=== PATIENT | male | born 1975 | race Caucasian/White ===

== ENCOUNTER 2018-08-20 06:57 | Outpatient (CLI) | payer OTHER, SELFPAY ==
[2018-08-20 08:28] LABS: BUN 16 mg/dL (7-18); CREATININE 1.05 mg/dL (0.70-1.30); Calcium 9.1 mg/dL (8.5-10.1); Chloride 106 mmol/L (98-107); Cholesterol 161 mg/dL (50-200); Glucose 112 mg/dL (70-100); HDL Cholesterol 37 mg/dL (40-60); LDL CHOLESTEROL 98 mg/dL (<100); Potassium 4.2 mmol/L (3.5-5.1); Sodium 142 mmol/L (136-145); Triglyceride 127 mg/dL (30-150)
== END 2018-08-20 07:17 ==
PROVIDERS: PCP Nurse Practitioner Family; Visit Provider Nurse Practitioner Family
DX: Z00.00 Encounter for general adult medical examination without abnormal findings (principal); Z13.220 Encounter for screening for lipoid disorders; Z13.228 Encounter for screening for other metabolic disorders
CPT/HCPCS: 36415; 80048; 80061; 83721

== ENCOUNTER 2020-01-02 11:07 | Outpatient (REF) | payer OTHER, SELFPAY ==
[2020-01-02 17:46] LABS: HCT 42.2 % (40.0-50.0); HGB 14.9 g/dL (13.5-17.5); Mean Corp. HGB Concentration 35.3 g/dL (32.0-36.0); Mean Corpuscular Hemoglobin 30.4 pg (27.0-33.0); Mean Corpuscular Volume 86.1 fL (80-95); Mean Platelet Volume 8.9 fL (8.0-11.0); Platelet Count 234 x1000/uL (130-400); RBC Distribution Width 13.2 % (11.8-14.1); White Blood Cell Count 5.98 k/cumm (4.4-10.8)
[2020-01-02 18:27] LABS: ALT 77 U/L (16-63); AST 34 U/L (15-37); Alkaline Phosphatase 76 U/L (46-116); Anion Gap 10.3 mmol/L (3-11); BUN 19 mg/dL (7-18); Bilirubin, Total 0.5 mg/dL (0.2-1.0); CO2 26.7 mmol/L (21.0-32.0); CREATININE 1.05 mg/dL (0.70-1.30); Chloride 104 mmol/L (98-107); Glucose 110 mg/dL (74-106); Potassium 4.1 mmol/L (3.5-5.1); Sodium 141 mmol/L (136-145); TSH (W/Ref FT4) 1.04 uIU/mL (0.36-3.74)
== END 2020-01-02 11:27 ==
LOC: NCHCN 11:07
PROVIDERS: PCP Nurse Practitioner Family; Visit Provider Nurse Practitioner Family
DX: R53.83 Other fatigue (principal)
CPT/HCPCS: 80053; 85027; 84443

== ENCOUNTER 2022-02-28 18:22 | Outpatient (REF) | payer BC, SELFPAY ==
[2022-02-28 18:59] LABS: HCT 41.4 % (40.0-50.0); HGB 14.3 g/dL (13.5-17.5); MCH 29.2 pg (27.0-33.0); MCHC 34.5 % (32.0-36.0); MCV 85 fL (80-95); Platelet Count 217 10^3/uL (130-400); RDW 12.3 % (11.8-14.1); RDW-SD 37.3 fL; WBC 6.36 10^3/uL (4.4-10.8)
[2022-02-28 19:20] LABS: Iron 77 ug/dL (65-175); Total Iron Binding Capacity 305 ug/dL (250-450); Transferrin Sat 25 % (20-55)
[2022-02-28 19:31] LABS: Anion Gap 12.6 mmol/L (3-11); BUN 15 mg/dL (7-18); CO2 26.4 mmol/L (21.0-32.0); Calcium 9.1 mg/dL (8.5-10.1); Chloride 103 mmol/L (98-107); Ferritin 118 ng/mL (26-388); Glucose 120 mg/dL (74-106); Potassium 3.8 mmol/L (3.5-5.1); Sodium 142 mmol/L (136-145); TSH (W/Ref FT4) 1.16 uIU/mL (0.36-3.74)
[2022-02-28 19:38] LABS: Hemoglobin A1C 5.9 % (<5.7)
== END 2022-02-28 18:23 | disposition home or self-care (01) ==
LOC: NCHCN 18:22
PROVIDERS: PCP Nurse Practitioner Family; Visit Provider Nurse Practitioner Family
DX: R53.83 Other fatigue (principal); R73.09 Other abnormal glucose
CPT/HCPCS: 80048; 85027; 82728; 83036; 83540; 83550; 84443

== ENCOUNTER 2022-06-22 12:42 | Outpatient (REF) | payer BC, SELFPAY ==
[2022-06-28 16:25] LABS: Testosterone, Free 8.34 ng/dL (4.46-17.1); Testosterone, Total 196 ng/dL (240-950)
== END 2022-06-22 12:43 | disposition home or self-care (01) ==
LOC: NCHCN 12:42
PROVIDERS: PCP Nurse Practitioner Family; Visit Provider Nurse Practitioner Family
DX: R53.83 Other fatigue (principal); F39 Unspecified mood [affective] disorder; E29.1 Testicular hypofunction
CPT/HCPCS: 84402; 84403

== ENCOUNTER 2022-07-20 15:43 | Outpatient (REF) | payer BC, SELFPAY ==
[2022-07-25 13:19] LABS: Testosterone, Total 207 ng/dL (240-950)
== END 2022-07-20 15:44 | disposition home or self-care (01) ==
LOC: NCHCN 15:43
PROVIDERS: PCP Nurse Practitioner Family; Visit Provider Nurse Practitioner Family
DX: R68.82 Decreased libido (principal); R53.83 Other fatigue
CPT/HCPCS: 84403

== ENCOUNTER 2023-03-30 11:05 | Outpatient (REF) | payer BC, SELFPAY ==
[2023-03-30 14:48] LABS: Abs Immature Grans 0.01 10^3/uL (0.0-0.06); Absolute Basophil Count 0.05 10^3/uL (0.0-0.2); Absolute Eosinophil Count 0.26 10^3/uL (0.0-0.7); Absolute Lymphocyte Count 1.86 10^3/uL (1.2-3.4); Absolute Monocyte Count 0.48 10^3/uL (0.1-0.8); Absolute Neutrophil Count 3.51 10^3/uL (1.2-6.7); Basophils % 0.8; Eosinophils % 4.2; HCT 45.3 % (40.0-50.0); HGB 15.6 g/dL (13.5-17.5); Immature Grans % 0.2; Lymphocytes % 30.1; MCH 29.3 pg (27.0-33.0); MCHC 34.4 % (32.0-36.0); MCV 85 fL (80-95); Monocytes % 7.8; Neutrophils % 56.9; Platelet Count 285 10^3/uL (130-400); RBC 5.32 10^6/uL (4.36-5.78); RDW 12.4 % (11.8-14.1); RDW-SD 38.2 fL; WBC 6.17 10^3/uL (4.4-10.8)
[2023-03-30 15:22] LABS: ALT 64 U/L (16-63); AST 25 U/L (15-37); Alkaline Phosphatase 81 U/L (46-116); Anion Gap 7.9 mmol/L (3-11); BUN 14 mg/dL (7-18); Bilirubin, Total 0.3 mg/dL (0.2-1.0); CO2 29.1 mmol/L (21.0-32.0); Calcium 9.4 mg/dL (8.5-10.1); Chloride 105 mmol/L (98-107); Estimated GFR 94.59 (mL/min/1.73m2); Glucose 124 mg/dL (74-106); Sodium 142 mmol/L (136-145); TSH (W/Ref FT4) 1.28 uIU/mL (0.36-3.74); Total Protein 6.9 g/dL (6.4-8.2)
[2023-03-30 15:29] LABS: Hemoglobin A1C 5.7 % (<5.7)
[2023-03-30 23:01] LABS: PSA, Screening 0.7 ng/mL (<=2.5)
[2023-04-10 14:03] LABS: Testosterone, Free 5.87 ng/dL (4.26-16.4); Testosterone, Total 169 ng/dL (240-950)
== END 2023-03-30 11:06 | disposition home or self-care (01) ==
LOC: NCHCN 11:05
PROVIDERS: PCP Nurse Practitioner Family; Visit Provider Nurse Practitioner Family
DX: R53.83 Other fatigue (principal); E29.1 Testicular hypofunction; R73.03 Prediabetes; Z12.5 Encounter for screening for malignant neoplasm of prostate
CPT/HCPCS: 80053; 84153; 84402; 84403; 83036; 84443; 85025

== ENCOUNTER 2023-04-13 01:03 | Emergency (ER) | payer BC, SELFPAY ==
[2023-04-13 01:07] VITALS: BP 138/81; PULSE 65; RESP 17; TEMP 37.1; O2SAT 99
--- NOTE | 2023-04-13 01:17 | ED.GENADUL_ITS ---
Discharge Plan Disposition Patient Disposition: Home Discharge Details Clinical Impression: Acute pain of right hip Primary Care Provider: Yuli Jules ED Provider: Shayan Pace Home Meds and New Rx's Prescriptions: New prednisone 50 mg tablet 50 mg PO DAILY Qty: 5 0RF No Action omeprazole 20 mg capsule,delayed release(DR/EC) 20 mg PO DAILY Patient Comments: Take 1 capsule by mouth once a day testosterone 1 % (50 mg/5 gram) gel in packet 1 packet transdermal DAILY Patient Comments: APPLY 1 PACKET TO SKIN ONCE DAILY escitalopram oxalate [Lexapro] 10 MG tablet 10 mg PO DAILY Discharge Instructions Instructions: Leg Pain (ED) Additional Instructions: At this time your x-ray shows no evidence of fracture, tumor, or other significant abnormality. There is no clinical evidence of infection on your exam. I suspect there could be a ligamentous injury. Joint injury to the hip causing inflammation in your bursa and around the joint. Please continue to take Tylenol and Motrin for pain. Please continue to take your omeprazole while you take these. If your symptoms do not begin to improve over the next 24 to 48 hours with Tylenol Motrin and crutches, please take the steroid as directed. It has been sent to your pharmacy on file. Stand Alone Forms: Work Release Referrals: Yuli Jules [Primary Care Provider] - Oc Melo MD [ [facility] STAFF PHYSICIAN] - John Vincent MD [ [facility] STAFF PHYSICIAN] - Medical Decision Making 47-year-old male with no significant past medical history except for depression, presents today for right hip pain. Patient states that for the last few years he has had on and off pain in the right hip, usually goes away on its own with time. However last night he woke up and noticed it was particularly worse. He describes it as a throbbing-like sensation in the right hip. Worse with movement of the hip. He did take Tylenol Motrin prior to arrival. He denies any numbness or tingling. No trauma. No excessive exercise. He denies any recent heavy weight lifting or lifting. 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 No history of poor dentition or dental caries. No history of IV drug use per patient. No history of HIV. No fever or chills. No other complaints at this time. Exam demonstrates well-appearing male, tenderness present over the greater trochanter. Pain is relieved with flexion of the hip, worsened with extension, and internal and external rotation. No vascular abnormality. No redness or warmth to suggest cellulitis or septic joint. No fever. Differential is highest for labral or ligamentous injury. Potentially from previous use in the past, manifesting with age now. Fracture less likely. Tumor on the differential but less likely. We will get an x-ray for further evaluation, monitor closely and reassess. Results negative for acute process. Suspect potential labral etiology versus bursal inflammation. Additionally there are some tendon calcifications noted, this may certainly be adding to the pain. Will recommend NSAIDs, weightbearing as tolerated with crutches, and prednisone if the symptoms show no improvement over the next 48 hours. Discussed red flags which to return. I have extensively reviewed the treatment plan and discharge instructions with the patient. I have addressed all patient concerns at this time. The patient was made aware of what symptoms to monitor for that would warrant a return to the emergency department. Discussed the plan with the patient, they demonstrate verbal understanding and agreement with our assessment and plan at this time. The documentation in this chart was dictated using [employer] dictation software. Please excuse any dictation errors. . FINDINGS: Bones/joints: Normal. Soft tissues: Unremarkable. IMPRESSION: No acute findings. Thank you for allowing us to participate in the care of your patient. Dictated and Authenticated by: Shaun Cox MD 04/13/2023 3:17 AM Eastern Time ([place] & [place]) HPI General Date/Time Provider Initiated Documentation: 04/13/23 01:13 . HPI Narrative: 47-year-old male with no significant past medical history except for depression, presents today for right hip pain. Patient states that for the last few years he has had on and off pain in the right hip, usually goes away on its own with time. However last night he woke up and noticed it was particularly worse. He describes it as a throbbing-like sensation in the right hip. Worse with movement of the hip. He did take Tylenol Motrin prior to arrival. He denies any numbness or tingling. No trauma. No excessive exercise. He denies any recent heavy weight lifting or lifting. 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 No history of poor dentition or dental caries. No history of IV drug use per patient. No history of HIV. No fever or chills. No other complaints at this time. Related Data Home Medications Medication Instructions Recorded Confirmed escitalopram oxalate 10 mg tablet 10 mg PO DAILY 01/22/18 04/13/23 (Lexapro) omeprazole 20 mg capsule,delayed 20 mg PO DAILY 04/13/23 04/13/23 release prednisone 50 mg tablet 50 mg PO DAILY #5 tabs 04/13/23 testosterone 1 % (50 mg/5 gram) 1 packet transdermal DAILY 04/13/23 04/13/23 transdermal gel packet Previous Rx's Medication Instructions Recorded prednisone 50 mg tablet 50 mg PO DAILY #5 tabs 04/13/23 Allergies Allergy/AdvReac Type Severity Reaction Status Date / Time shellfish derived Allergy Intermediate Swelling/Ed Unverified 04/13/23 01:21 laya penicillin V Allergy Unknown Unverified 08/25/20 15:41 General Stated Complaint: Orthopedic MATIAS: 3 Review of Systems All systems reviewed & are unremarkable except as noted in HPI and below PFSH All Active Problems (Updated 04/13/23 @ 01:24 by Shayan Pace DO) Acute pain of right hip (Acute) Chronic GERD (Acute) Dysphagia (Acute) Social History Smoking/Tobacco Use Status: Never Smoking risk assessment performed?: Yes Alcohol Intake: current Alcohol Intake frequency: a few times a month Alcohol type: beer and hard liquor Drug use: Daily Substance use type: marijuana Details: gummies for sleep Housing: house Do you feel safe at home: Yes Do you feel safe in your relationship?: Yes Exam Narrative Exam Narrative: 1.Const: Well-nourished, Well-developed, appearing stated age 2.Eyes: PERRL, no conjunctival injection, and symmetrical lids. 3.ENT: Atraumatic external nose and ears. Moist MM. Neck: Symmetric, trachea midline, No thyromegaly. 4.CVS: +S1/S2, No murmurs or gallops. Peripheral pulses 2+ and equal in all extremities. Brisk capillary refill in all extremities. 5.RESP: Unlabored respiratory effort. Clear to auscultation bilaterally. No wheezes rales or rhonchi 6.GI: Soft, Nontender/Nondistended, No hepatosplenomegaly. No guarding or rebound. 7.MSK: Normocephalic/Atraumatic, Extremities w/o deformity. No cyanosis or clubbing. Tenderness over the greater trochanter on the right hip. Pain is relieved with flexion of the hip. It is worsened with extension of the hip. It is also worsened with internal and external rotation. Exam demonstrates no redness or warmth to suggest cellulitis or septic joint. Distal exam of the thigh knee and foot are unremarkable. 8.Skin: Warm, Dry. No rashes or lesions. 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 Sensation grossly intact, no focal neurologic deficits. 10.Psych: (AAO) x3. Appropriate mood and affect Course Vital Signs Vital signs: Vital Signs Temperature 37.1 C 04/13/23 01:07 Pulse 65 04/13/23 01:07 Respiratory Rate 17 04/13/23 01:07 Blood Pressure 138/81 04/13/23 01:07 Pulse Oximetry 99 04/13/23 01:07 Temperature 37.1 C 04/13/23 01:07 Temperature Source Temporal Artery Scan 04/13/23 01:07 Pulse 65 04/13/23 01:07 Respiratory Rate 17 04/13/23 01:07 Blood Pressure 138/81 04/13/23 01:07 Blood Pressure Position Sitting 04/13/23 01:07 Pulse Oximetry 99 04/13/23 01:07 Oxygen Delivery Method Room Air 04/13/23 01:07 Oxygen Flow Rate 0 04/13/23 01:07 Pain Level 4 04/13/23 01:07
--- NOTE | 2023-04-13 01:30 | DI.RAD_ITS ---
Exam(s) XR HIP RT COMPLETE AP PELVIS EXAM: XR HIP RT COMPLETE AP PELVIS CLINICAL HISTORY: right hip pain, hx of deadlifting. TECHNIQUE: 2D digital imaging was performed of the right hip. Four images were obtained. AP pelvis and lateral right hip views were obtained. COMPARISON: No exams were available for comparison FINDINGS: BONES: No acute fracture is present. No bony destructive lesion is seen. JOINTS: No dislocation present. There are degenerative changes seen in the right hip with joint space narrowing and osteophytes. SOFT TISSUE: Normal. IMPRESSION: No acute fracture or dislocation. DATA REPOSITORY: RADIATION DOSE DELIVERED:
--- NOTE | 2023-04-13 03:18 | DI.VRAD_ITS ---
PROCEDURE INFORMATION: Exam: XR Right Hip Exam date and time: 04/13/2023 1:25 AM Age: 47 years old Clinical indication: Hip pain; Right hip TECHNIQUE: Imaging protocol: Radiologic exam of the right hip. Views: 2 or 3 views hip with pelvis when performed. COMPARISON: No relevant prior studies available. FINDINGS: Bones/joints: Normal. Soft tissues: Unremarkable. IMPRESSION: No acute findings. Dictated and Authenticated by: Shaun Cox MD. Ordering:KEITH Downey MD
== END 2023-04-13 01:51 | disposition home or self-care (01) ==
PROVIDERS: Emergency Provider Student in an Organized Health Care Education/Training Program; PCP Nurse Practitioner Family
DX: M25.551 Pain in right hip (principal)
CPT/HCPCS: 99283; 73502; 99284

== ENCOUNTER 2023-07-03 07:22 | Day surgery (SDC) | payer BC, SELFPAY ==
[2023-07-03 08:05] VITALS: BP 129/94; PULSE 62; RESP 18; TEMP 36.4; O2SAT 96
[2023-07-03] MEDS: Lactated Ringers 1,000 ML 80 ML IV (08:35)
--- NOTE | 2023-07-03 08:42 | W.COLOREPORT ---
Date of service: 07/03/23 Time of Service: 08:42 Colonoscopy Report Procedure Description: PROCEDURES PERFORMED: 1. Colonoscopy PREOPERATIVE DIAGNOSIS: Screening colonoscopy POSTOPERATIVE DIAGNOSIS: Normal terminal ileum, normal colon, normal rectum SURGEON: Preet Marin MD INDICATION for procedure: The patient is a 47-year-old man with no symptoms, no family history of colon cancer and he has never had a colonoscopy before. FINDINGS: Normal terminal ileum. No polyps. No inflammation. No diverticular disease. No hemorrhoidal disease. SURVEILLANCE-INTERVAL/FOLLOW-UP: 10 years. Specimens: None EBL: Minimal COMPLICATIONS: None QUALITY of prep: Excellent Procedure in detail: The patient gave written consent and was in agreement with the indications, the potential risks as well as the benefits of the procedure. They were taken to the endoscopy suite and laid in the left lateral decubitus position. A timeout was performed and anesthesia was administered which was tolerated well. I started the procedure. Digital rectal and visual examination was performed and grossly within normal limits. A well-lubricated flexible colonoscope was then introduced and passed without any notable difficulty all the way to the cecum identified by the ileocecal valve and the appendiceal orifice. The terminal ileum was briefly intubated and looked normal visually. The scope was then slowly withdrawn with the above-noted findings. The patient tolerated the procedure well and was taken to the PACU in hemodynamically stable condition.
--- NOTE | 2023-07-03 08:43 | W.PM.DSUDISC ---
Date of service: 07/03/23 Time of Service: 08:43 Discharge Plan Disposition Patient Disposition: Home Condition: Good Discharge Details Attending Provider: Shaun Marin Primary Care Provider: Yuli Jules Home Meds and New Rx's Prescriptions: No Action testosterone enanthate 50 mg/0.5 mL auto-injector 50 mg subcut Q14D Rx Instructions: Every other week. bisacodyl [Dulcolax (bisacodyl)] 5 mg tablet,delayed release (DR/EC) 5 mg PO ONCE Qty: 4 0RF Rx Instructions: Take per colonoscopy instructions provided by ordering providers office polyethylene glycol 3350 17 gram/dose powder 17 g PO ONCE Qty: 238 0RF Rx Instructions: Take per colonoscopy instructions provided by ordering providers office lamotrigine [Lamictal] 25 mg tablet 25 mg PO DAILY escitalopram oxalate [Lexapro] 10 mg tablet 20 mg PO DAILY fluticasone propionate [Flonase Allergy Relief] 50 mcg/actuation spray,suspension 1 spray intranasal DAILY PRN Rx Instructions: administer into each nostril clotrimazole-betamethasone 1-0.05 % cream 1 applic topical BID omeprazole 20 mg capsule,delayed release(DR/EC) 20 mg PO DAILY PRN Patient Comments: Take 1 capsule by mouth once a day multivitamin [Daily Multi-Vitamin] Tablet 1 tab PO DAILY Discharge Instructions Additional Instructions: FINDINGS: Your small intestine, colon and rectum appear completely normal and healthy. No polyps were found. Repeat a colonoscopy in 10 years. Stand Alone Forms: Colonoscopy Post Instructions Activity:: Activity as Tolerated Diet:: As Tolerated
--- NOTE | 2023-07-03 08:43 | W.ANESPRE ---
General Info Date of Service Date Performed: 07/03/23 Height: 5 ft 10 in Weight: 114.2 kg Body Mass Index (BMI): 36.1 Surgical Procedure: Operation Date: 07/03/23 09:05 Proposed Procedure Side Surgeon kiran Marin MD Meds Allergies and Home Medications Allergies Allergy/AdvReac Type Severity Reaction Status Date / Time shellfish derived Allergy Intermediate Swelling/Ed Unverified 07/03/23 08:04 laya penicillin V Allergy Unknown Unverified 07/03/23 08:04 Home Medication Medication Instructions Recorded clotrimazole-betamethasone 1 1 applic topical BID 05/17/23 %-0.05 % topical cream escitalopram oxalate 10 mg tablet 20 mg PO DAILY 05/17/23 (Lexapro) fluticasone propionate 50 1 spray intranasal DAILY PRN 05/17/23 mcg/actuation nasal spray,suspension (Flonase Allergy Relief) bisacodyl 5 mg tablet,delayed 5 mg PO ONCE #4 tabs 06/14/23 release (Dulcolax (bisacodyl)) lamotrigine 25 mg tablet (Lamictal) 25 mg PO DAILY 06/14/23 omeprazole 20 mg capsule,delayed 20 mg PO DAILY PRN 06/14/23 release polyethylene glycol 3350 17 17 g PO ONCE #238 grams 06/14/23 gram/dose oral powder testosterone enanthate 50 mg/0.5 50 mg subcut Q14D 06/14/23 mL subcutaneous auto-injector multivitamin (Daily Multi-Vitamin 1 tab PO DAILY 07/03/23 tablet) Current Visit Medications: Current Medications Generic Name Dose Route Start Last Admin Trade Name Freq PRN Reason Stop Dose Admin Ringer's Solution 1,000 mls @ 80 mls/hr 07/03/23 06:00 07/03/23 08:35 IV 07/03/23 23:59 80 mls/hr INFUSION GARETT Administration IV Miscellaneous Supplies 1 each 07/03/23 06:00 Iv Access IV 07/03/23 23:59 DIRECTED GARETT Sodium Chloride 0 ml 07/03/23 06:00 Normal Saline Flush 10 Ml Syr IV 07/03/23 23:59 PRN PRN Sodium Chloride 0 ml 07/03/23 06:00 Normal Saline 10 Ml Vial IJ 07/03/23 23:59 DIRECTED PRN Sterile Water 0 ml 07/03/23 06:00 Water,Injection,Sterile 10 Ml Vial IJ 07/03/23 23:59 DIRECTED PRN PFSH Active Problems Active Problems: Problem Status Onset Code Prediabetes R73.03 Chronic GERD K21.9 Dysphagia R13.10 Medical History Medical History Depression Restless leg Cyst of lateral meniscus of left knee Headache Back pain Episodic mood disorder Dysphasia GERD (gastroesophageal reflux disease) Fatigue Candidal skin infection Decreased libido Low serum testosterone level Medical History Comments:: Per pt. states he is very sensitive to coming out of anesthesia Tobacco Smoking/Tobacco Use Status: Never Alcohol Alcohol Intake: current Alcohol intake frequency: a few times a month Alcohol type: beer and hard liquor Substance Use Substance use: Daily Substance use type: marijuana Details: gummies for sleep Vital Signs and Lab Results Vital Signs Most Recent Vital Signs in EMR: Most Recent Vital Signs Temp Pulse Resp BP Pulse Ox 36.4 C L 62 18 129/94 H 96 07/03/23 08:05 07/03/23 08:05 07/03/23 08:05 07/03/23 08:05 07/03/23 08:05 Lab Results Blood Type / Crossmatch: No Data to Display Complete Blood Count: No Data to Display Complete Metabolic Panel: No Data to Display Liver Function Panel: No Data to Display Coagulation Panel: No Data to Display Cardiac Panel: No Data to Display Arterial Blood Gas: No Data to Display Venous Blood Gas: No Data to Display Pancreas Panel: No Data to Display Thyroid Panel: No Data to Display Infectious Disease: No Data to Display Blood Cultures: No Data to Display Toxicology Panel: No Data to Display Anesthesia Assessment and Plan Anesthesia History Personal History: Other Family History: No Family History of Anesthesia Complications Exercise Tolerance Exercise Tolerance: Metabolic Equivalents>4 Pertinent Negatives Pertinent Negatives: No Major Cardiovascular Symptoms or Complaints and No Major Pulmonary Symptoms or Complaints Cardiac & Pulmonary Exam Cardiac Exam: Normal S1/S2 Heart Sounds Pulmonary Exam: Clear Bilateral Breath Sounds Implantable Cardiac Device Does patient have a Pacemaker or an ICD?: No Airway Exam Known Difficult Airway: No Mallampati Class: 2 Mouth Opening: Normal (> 3cm) Thyromental Distance: Greater than 3 cm Neck Range of Motion: Full ROM Neck Circumference: Thick Teeth Condition: Normal Dentition Airway Comments: Reports some snoring ASA Classification ASA Score: ASA 2 Emergency Case?: No NPO Status NPO Status: NPO Clears >2 hours, Solids >8 hours Anesthesia Plan Resuscitation Status: Full Code Anesthesia Technique: General Anesthesia Airway Planned: Natural Airway Monitors Used: Standard Monitors Preoperative Comments:: GERD well controlled, medication as needed.
[2023-07-03 08:45] VITALS: BMI 36.1
[2023-07-03 09:14] VITALS: BP 127/73; PULSE 58; RESP 14; TEMP 36.7; O2SAT 97
[2023-07-03 09:42] VITALS: BP 110/67; PULSE 66; RESP 18; TEMP 36.4; O2SAT 97
--- NOTE | 2023-07-03 09:50 | W.ANESPOSTOP ---
Postoperative Evaluation Date, Time and Location Date Performed: 07/03/23 Time Performed: : Patient Location: Day Surgery Unit Vital Signs Most Recent Imported Vital Signs: Most Recent Vital Signs Temp Pulse Resp BP Pulse Ox 36.4 C L 66 18 110/67 97 07/03/23 09:42 07/03/23 09:42 07/03/23 09:42 07/03/23 09:42 07/03/23 09:42 Pain Score Most Recent Pain Score: Most Recent Pain Score Pain Level 0 07/03/23 09:42 Assessment Mental Status: Awake (Alert & Oriented to Patient Baseline) Airway and Respiratory Function: Patent airway with normal (patient baseline) respiratory exam Cardiovascular Function: Hemodynamically Stable Hydration Status: Adequately Hydrated Nausea & Vomiting: No Nausea or Vomiting Pain: Pt. Denies Any Pain Peripheral Nerve Block: Patient did not receive a nerve block
== END 2023-07-03 10:06 | disposition home or self-care (01) ==
PROVIDERS: PCP Nurse Practitioner Family; Visit Provider Student in an Organized Health Care Education/Training Program
PROC: 0DJD8ZZ Inspection of Lower Intestinal Tract, Via Natural or Artificial Opening Endoscopic (ICD-10-PCS; CPT 45378; principal; 2023-07-03 09:00)
DX: Z12.11 Encounter for screening for malignant neoplasm of colon (principal); K21.9 Gastro-esophageal reflux disease without esophagitis
CPT/HCPCS: 45378; 00123; J2001

== ENCOUNTER 2023-07-18 16:10 | Outpatient (REF) | payer BC, SELFPAY ==
[2023-07-18 15:54] LABS: Abs Immature Grans 0.01 10^3/uL (0.0-0.06); Absolute Basophil Count 0.06 10^3/uL (0.0-0.2); Absolute Lymphocyte Count 1.82 10^3/uL (1.2-3.4); Absolute Monocyte Count 0.66 10^3/uL (0.1-0.8); Absolute Neutrophil Count 4.07 10^3/uL (1.2-6.7); Basophils % 0.9; Eosinophils % 4.3; HCT 44.9 % (40.0-50.0); HGB 15.7 g/dL (13.5-17.5); Immature Grans % 0.1; Lymphocytes % 26.3; MCH 29.1 pg (27.0-33.0); MCV 83 fL (80-95); MPV 9.2 fL (8.0-11.0); Monocytes % 9.5; Neutrophils % 58.9; Platelet Count 232 10^3/uL (130-400); RBC 5.39 10^6/uL (4.36-5.78); RDW 12.1 % (11.8-14.1); RDW-SD 36.4 fL; WBC 6.92 10^3/uL (4.4-10.8)
[2023-07-18 16:08] LABS: Calculated LDL 105 mg/dL (<100); Cholesterol 181 mg/dL (<200); HDL Cholesterol 37 mg/dL (40-60); Triglyceride 196 mg/dL (<150)
[2023-07-25 15:19] LABS: Testosterone, Free 5.14 ng/dL (4.26-16.4); Testosterone, Total 146 ng/dL (240-950)
== END 2023-07-18 16:11 | disposition home or self-care (01) ==
LOC: NCHCN 16:10
PROVIDERS: PCP Nurse Practitioner Family; Visit Provider Nurse Practitioner Family
DX: E29.1 Testicular hypofunction (principal); Z13.220 Encounter for screening for lipoid disorders
CPT/HCPCS: 80061; 84402; 84403; 85025

== ENCOUNTER 2023-09-13 10:40 | Emergency (ER) | payer BC, SELFPAY ==
[2023-09-13 10:47] VITALS: BP 186/98; PULSE 72; RESP 16; TEMP 36.6; O2SAT 99
[2023-09-13] MEDS: Ketorolac 10 MG TAB PO (11:06)
[2023-09-13] MEDS: Acetaminophen 500 MG TAB 1000 MG PO (11:07)
--- NOTE | 2023-09-13 11:20 | DI.RAD_ITS ---
Exam(s) XR KNEE RT 3V AP,LAT,BETTE EXAM: XR KNEE RT 3V AP,LAT,BETTE CLINICAL HISTORY: knee pain. TECHNIQUE: 2D digital imaging was performed. Three views. COMPARISON: No exams were available for comparison FINDINGS: BONES: No acute fracture is present. No bony destructive lesion is seen. JOINTS: The knee is normally aligned. No joint effusion is seen. The joint spaces are maintained. Mild chondrocalcinosis is present. Mild periarticular spurring. SOFT TISSUE: Normal. IMPRESSION: Mild degenerative changes and chondrocalcinosis. DATA REPOSITORY: RADIATION DOSE DELIVERED:
--- NOTE | 2023-09-13 11:28 | DI.RAD_ITS ---
Exam(s) XR LUMBAR SPINE AP, LAT EXAM: XR LUMBAR SPINE AP, LAT CLINICAL HISTORY: back pain. TECHNIQUE: 2D digital imaging was performed. Five views. COMPARISON: CR LUMBAR SPINE COMPLETE from 03/27/2014 FINDINGS: BONES: No fracture or destructive lesion. Vertebral body heights are maintained. Small endplate oste ophytes. No facet hypertrophy identified. DISKS: Intervertebral disc spaces are maintained. ALIGNMENT: Lumbar spinal alignment is within normal limits. SOFT TISSUE: Normal. IMPRESSION: Unremarkable radiographs of the lumbar spine. DATA REPOSITORY: RADIATION DOSE DELIVERED:
--- NOTE | 2023-09-13 11:41 | ED.GENADUL_ITS ---
Discharge Plan Disposition Patient Disposition: Home Condition: Stable Discharge Details Clinical Impression: Degenerative arthritis of knee, Chronic back pain, Knee pain, right Primary Care Provider: Yuli Jules ED Provider: Mahsa Mckeon Home Meds and New Rx's Prescriptions: New meloxicam 15 mg tablet 15 mg PO DAILY Qty: 30 0RF Rx Instructions: with food. do not take with other NSAIDS No Action testosterone enanthate 50 mg/0.5 mL auto-injector 50 mg subcut Q14D Rx Instructions: Every other week. lamotrigine [Lamictal] 25 mg tablet 25 mg PO DAILY escitalopram oxalate [Lexapro] 10 mg tablet 20 mg PO DAILY fluticasone propionate [Flonase Allergy Relief] 50 mcg/actuation spray,suspension 1 spray intranasal DAILY PRN Rx Instructions: administer into each nostril clotrimazole-betamethasone 1-0.05 % cream 1 applic topical BID omeprazole 20 mg capsule,delayed release(DR/EC) 20 mg PO DAILY PRN Patient Comments: Take 1 capsule by mouth once a day multivitamin [Daily Multi-Vitamin] Tablet 1 tab PO DAILY Discharge Instructions Instructions: Knee Pain (ED) Additional Instructions: start NSAID medication as prescribed, keep follow up with PCP for further management HPI General Date/Time Provider Initiated Documentation: 09/13/23 10:59 . Limitations to Documentation: no limitations . Information obtained by: patient . HPI Narrative: 48-year-old gentleman without significant past medical history presents for evaluation of chronic low back pain. He reports this is an ongoing issue. Denies any acute trauma or fall. He reports that since yesterday he started having more significant right knee pain. Again no trauma or event that precipitated this. He states that he has not really been taking any pain medication for relief. He says that he has a an appointment scheduled with his PCP but that he wanted to make sure that he got some x-rays first. Related Data Home Medications Medication Instructions Recorded Confirmed clotrimazole-betamethasone 1 1 applic topical BID 05/17/23 09/13/23 %-0.05 % topical cream escitalopram oxalate 10 mg tablet 20 mg PO DAILY 05/17/23 09/13/23 (Lexapro) fluticasone propionate 50 1 spray intranasal DAILY PRN 05/17/23 09/13/23 mcg/actuation nasal spray,suspension (Flonase Allergy Relief) lamotrigine 25 mg tablet (Lamictal) 25 mg PO DAILY 06/14/23 09/13/23 omeprazole 20 mg capsule,delayed 20 mg PO DAILY PRN 06/14/23 09/13/23 release testosterone enanthate 50 mg/0.5 50 mg subcut Q14D 06/14/23 09/13/23 mL subcutaneous auto-injector multivitamin (Daily Multi-Vitamin 1 tab PO DAILY 07/03/23 09/13/23 tablet) meloxicam 15 mg tablet 15 mg PO DAILY #30 tabs 09/13/23 Previous Rx's Medication Instructions Recorded meloxicam 15 mg tablet 15 mg PO DAILY #30 tabs 09/13/23 Allergies Allergy/AdvReac Type Severity Reaction Status Date / Time shellfish derived Allergy Intermediate Swelling/Ed Unverified 09/13/23 10:46 laya penicillin V Allergy Unknown Skin Rash Unverified 09/13/23 10:46 General Stated Complaint: Orthopedic MATIAS: 4 Exam Narrative Exam Narrative: Review of Systems: All systems reviewed & are unremarkable except as noted in HPI and below Well-developed, no acute distress NCAT PERRL, normal conjunctiva RRR Unlabored respiratory effort Nondistended abdomen Extremities w/o deformity, no cyanosis, no edema No midline back tenderness, step-off or deformity, negative straight leg test Right knee without effusion or instability or obvious deformity No rashes or lesions. no focal neurologic deficits Appropriate mood and affect Course Vital Signs Vital signs: Vital Signs Temperature 36.6 C 09/13/23 10:47 Pulse 72 09/13/23 10:47 Respiratory Rate 16 09/13/23 10:47 Blood Pressure 186/98 H 09/13/23 10:47 Pulse Oximetry 99 09/13/23 10:47 Temperature 36.6 C 09/13/23 10:47 Temperature Source Temporal Artery Scan 09/13/23 10:47 Pulse 72 09/13/23 10:47 Respiratory Rate 16 09/13/23 10:47 Blood Pressure 186/98 H 09/13/23 10:47 Blood Pressure Position Sitting 09/13/23 10:47 Pulse Oximetry 99 09/13/23 10:47 Oxygen Delivery Method Room Air 09/13/23 10:47 Oxygen Flow Rate 0 09/13/23 10:47 Pain Level 6 09/13/23 11:07 Comment no meds today 09/13/23 10:47 Medical Decision Making Emergent evaluation of knee pain. No trauma. Examination is benign. Back pain is unremarkable and patient has no risk factors. Imaging obtained and this is unremarkable. Will start on Mobic. Patient has primary care follow-up. Return precautions advised. Medical Records Medical records reviewed: Yes I reviewed the patient's medical records. Quality:SDOH Health Related Social Needs: No Data to Display PFSH All Active Problems Knee pain, right (Acute) Chronic back pain (Acute) Degenerative arthritis of knee (Acute) Prediabetes (Acute) Chronic GERD (Acute) Dysphagia (Acute) Medical History Depression Restless leg Cyst of lateral meniscus of left knee Headache Back pain Episodic mood disorder Dysphasia GERD (gastroesophageal reflux disease) Fatigue Candidal skin infection Decreased libido Low serum testosterone level Surgical History History of colonoscopy (~06/2023) Social History Smoking/Tobacco Use Status: Never Smoking risk assessment performed?: Yes Alcohol Intake: current Alcohol Intake frequency: a few times a month Alcohol type: beer and hard liquor Drug use: Daily Substance use type: marijuana Details: gummies for sleep Housing: house Current gender identity: male Do you feel safe at home: Yes Do you feel safe in your relationship?: Yes
== END 2023-09-13 11:46 | disposition home or self-care (01) ==
PROVIDERS: Emergency Provider Emergency Medicine; PCP Nurse Practitioner Family
DX: M54.50 Low back pain, unspecified (principal); M17.11 Unilateral primary osteoarthritis, right knee; G89.29 Other chronic pain
CPT/HCPCS: 73562; 99283; 72100

== ENCOUNTER 2023-09-24 11:02 | Outpatient (REF) | payer BC, SELFPAY ==
[2023-09-24 17:35] LABS: Abs Immature Grans 0.01 10^3/uL (0.0-0.06); Absolute Basophil Count 0.06 10^3/uL (0.0-0.2); Absolute Eosinophil Count 0.21 10^3/uL (0.0-0.7); Absolute Lymphocyte Count 1.86 10^3/uL (1.2-3.4); Absolute Monocyte Count 0.54 10^3/uL (0.1-0.8); Absolute Neutrophil Count 3.58 10^3/uL (1.2-6.7); Eosinophils % 3.4; HCT 43.7 % (40.0-50.0); HGB 15.4 g/dL (13.5-17.5); Immature Grans % 0.2; Lymphocytes % 29.7; MCH 29.7 pg (27.0-33.0); MCHC 35.2 % (32.0-36.0); MCV 84 fL (80-95); MPV 9.6 fL (8.0-11.0); Monocytes % 8.6; Neutrophils % 57.1; Platelet Count 298 10^3/uL (130-400); RBC 5.19 10^6/uL (4.36-5.78); RDW 12.1 % (11.8-14.1); RDW-SD 36.4 fL; WBC 6.26 10^3/uL (4.4-10.8)
[2023-09-24 18:32] LABS: Iron 72 ug/dL (65-175); Total Iron Binding Capacity 288 ug/dL (250-450); Transferrin Sat 25 % (20-55)
[2023-09-24 18:44] LABS: ALT 55 U/L (16-63); AST 24 U/L (15-37); Albumin 3.9 g/dL (3.4-5.0); Alkaline Phosphatase 67 U/L (46-116); Anion Gap 11.9 mmol/L (3-11); BUN 17 mg/dL (7-18); Bilirubin, Total 0.3 mg/dL (0.2-1.0); CO2 25.1 mmol/L (21.0-32.0); CREATININE 0.9 mg/dL (0.70-1.30); Chloride 106 mmol/L (98-107); Estimated GFR 106.67 (mL/min/1.73m2); Glucose 107 mg/dL (74-106); Magnesium 1.9 mg/dL (1.8-2.4); Potassium 4.4 mmol/L (3.5-5.1); Sodium 143 mmol/L (136-145); Total Protein 6.8 g/dL (6.4-8.2); Uric Acid 6.6 mg/dL (3.5-7.2)
[2023-09-24 18:55] LABS: Vitamin D 25 Total 24.6 ng/mL (30-100)
[2023-09-24 19:15] LABS: Ferritin 134 ng/mL (26-388)
== END 2023-09-24 11:03 | disposition home or self-care (01) ==
LOC: NCHCN 11:02
PROVIDERS: PCP Nurse Practitioner Family; Visit Provider Student in an Organized Health Care Education/Training Program
DX: M11.261 Other chondrocalcinosis, right knee (principal)
CPT/HCPCS: 80053; 82306; 82728; 83540; 83550; 83735; 84550; 85025

== ENCOUNTER 2023-11-28 13:15 | Outpatient (REF) | payer BC, SELFPAY ==
[2023-11-28 21:17] LABS: Vitamin D 25 Total 29.9 ng/mL (30-100)
[2023-12-09 11:08] LABS: Testosterone, Free 6.16 ng/dL (4.26-16.4); Testosterone, Total 153 ng/dL (240-950)
== END 2023-11-28 13:16 | disposition home or self-care (01) ==
LOC: NCHCN 13:15
PROVIDERS: PCP Nurse Practitioner Family; Visit Provider Nurse Practitioner Family
DX: E29.1 Testicular hypofunction (principal)
CPT/HCPCS: 82306; 84402; 84403

== ENCOUNTER → 2024-01-23 00:28 | Outpatient (CLI) | payer BC, SELFPAY ==
--- NOTE | 2024-01-23 08:10 | DI.MRI_ITS ---
Exam(s) MR LOWER JOINT RT WO EXAM: MR LOWER JOINT RT WO CLINICAL HISTORY: PAIN,internal derangement rt knee, m23.91. TECHNIQUE: Multiplanar multisequence MRI was performed. COMPARISON: CR XR KNEE RT 3V AP,LAT,BETTE from 09/13/2023 FINDINGS: BONES: Mild edema in medial femoral condyle and medial tibial plateau could represent mild contusions . JOINTS: No a moderate-sized joint effusion is present. Articular cartilage: Patellofemoral joint: Cartilage shows mild thinning and irregularity. Medial femoral tibial joint: Thinning and irregularity of cartilage over medial femoral condyle. Lateral femoral tibial joint: Articular cartilage is unremarkable. LIGAMENTS: Anterior Cruciate: Unremarkable. Posterior Cruciate: Unremarkable. Medial Collateral:Unremarkable. Lateral Collateral ligament complex: Unremarkable. TENDONS: Extensor mechanism: Unremarkable. Medial retinaculum: Unremarkable. Lateral retinaculum: Unremarkable. Popliteus: Intact. Small amount of surrounding fluid. MENISCI: The medial meniscus shows blunting of the apex in the posterior horn. There is additional radial tea r seen near the meniscal root. The lateral meniscus is unremarkable. MUSCLES: Unremarkable. SOFT TISSUES: Edema in the anterior subcutaneous fat. IMPRESSION: Tears in the posterior horn of the medial meniscus. No ligament tears. DATA REPOSITORY:
== END ==
PROVIDERS: PCP Nurse Practitioner Family; Visit Provider Student in an Organized Health Care Education/Training Program
DX: M23.91 Unspecified internal derangement of right knee (principal); M23.221 Derangement of posterior horn of medial meniscus due to old tear or injury, right knee
CPT/HCPCS: 73721

== ENCOUNTER 2024-03-18 08:12 | Day surgery (SDC) | payer BC, SELFPAY ==
[2024-03-18] VITALS (14 sets, daily range): BP systolic 120–143; BP diastolic 63–98; PULSE 46–61; RESP 10–17; TEMP 36.1–36.5; O2SAT 95–100; BMI 37.2
[2024-03-18] MEDS: Lactated Ringers 1,000 ML 80 ML IV (09:04)
[2024-03-18] MEDS: Celecoxib 200 MG CAP 400 MG PO (09:05)
[2024-03-18] MEDS: Acetaminophen 500 MG TAB 1000 MG PO (09:05)
--- NOTE | 2024-03-18 09:07 | W.ANESPRE ---
General Info Date of Service Date Performed: 03/18/24 Height: 5 ft 10 in Weight: 117.7 kg Body Mass Index (BMI): 37.2 Surgical Procedure: Operation Date: 03/18/24 11:10 Proposed Procedure Side Surgeon p Knee Arthroscopy, Partial Lateral & Medial Menisectomy Right John Vincent MD Meds Allergies and Home Medications Allergies Allergy/AdvReac Type Severity Reaction Status Date / Time shellfish derived Allergy Intermediate Swelling/Ed Verified 03/18/24 08:22 laya penicillin V Allergy Unknown Skin Rash Verified 03/18/24 08:22 Home Medication ?Medication ?Instructions ?Recorded escitalopram oxalate 10 mg tablet 20 mg PO DAILY 05/17/23 (Lexapro) lamotrigine 25 mg tablet (Lamictal) 25 mg PO DAILY 06/14/23 omeprazole 20 mg capsule,delayed 20 mg PO DAILY PRN 06/14/23 release meloxicam 15 mg tablet 15 mg PO DAILY #30 tabs 09/13/23 Current Visit Medications: Current Medications Generic Name Dose Route Start Last Admin Trade Name Freq PRN Reason Stop Dose Admin Acetaminophen 1,000 mg 03/18/24 06:00 03/18/24 09:05 Acetaminophen 500 Mg Tab PO 03/18/24 23:59 1,000 mg PREOP GARETT Administration Celecoxib 400 mg 03/18/24 06:00 03/18/24 09:05 Celecoxib 200 Mg Cap PO 03/18/24 23:59 400 mg PREOP GARETT Administration Ringer's Solution 1,000 mls @ 80 mls/hr 03/18/24 06:00 03/18/24 09:04 IV 03/18/24 23:59 80 mls/hr INFUSION GARETT Administration Cefazolin Sodium 3,000 mg/ 100 mls @ 200 mls/hr 03/18/24 06:00 Sodium Chloride IV 03/18/24 23:59 PREOP GARETT Tranexamic Acid/Sodium Chloride 1,000 mg in 100 mls @ 600 mls/hr 03/18/24 06:00 IVPB 03/18/24 23:59 PREOP GARETT IV Miscellaneous Supplies 1 each 03/18/24 06:00 Iv Access IV 03/18/24 23:59 DIRECTED GARETT Sodium Chloride 0 ml 03/18/24 06:00 Normal Saline Flush 10 Ml Syr IV 03/18/24 23:59 PRN PRN Sodium Chloride 0 ml 03/18/24 06:00 Normal Saline 10 Ml Vial IJ 03/18/24 23:59 DIRECTED PRN Sterile Water 0 ml 03/18/24 06:00 Water,Injection,Sterile 10 Ml Vial IJ 03/18/24 23:59 DIRECTED PRN PFSH Active Problems Active Problems: Problem Status Onset Code Tear of lateral meniscus of right knee Acute S83.281A Complex tear of medial meniscus of right knee Acute S83.231A Chondrocalcinosis Acute M11.20 Internal derangement of right knee Acute M23.91 Degenerative joint disease of right hip Chronic M16.11 Prediabetes Acute R73.03 Chronic GERD Acute K21.9 Dysphagia Acute R13.10 Medical History Medical History Depression Restless leg Cyst of lateral meniscus of left knee Headache Back pain Episodic mood disorder Dysphasia GERD (gastroesophageal reflux disease) Fatigue Candidal skin infection Decreased libido Low serum testosterone level Surgical History Surgical History History of colonoscopy (~06/2023) Tobacco Smoking/Tobacco Use Status: Never Alcohol Alcohol Intake: current Alcohol intake frequency: a few times a month Alcohol type: beer and hard liquor Substance Use Substance use: Daily Substance use type: marijuana Details: gummies for sleep Vital Signs and Lab Results Vital Signs Most Recent Vital Signs in EMR: Most Recent Vital Signs Temp Pulse Resp BP Pulse Ox 36.3 C L 60 16 134/82 97 03/18/24 09:00 03/18/24 09:00 03/18/24 09:00 03/18/24 09:00 03/18/24 09:00 Lab Results Blood Type / Crossmatch: No Data to Display Complete Blood Count: No Data to Display Complete Metabolic Panel: No Data to Display Liver Function Panel: No Data to Display Coagulation Panel: No Data to Display Cardiac Panel: No Data to Display Arterial Blood Gas: No Data to Display Venous Blood Gas: No Data to Display Pancreas Panel: No Data to Display Thyroid Panel: No Data to Display Infectious Disease: No Data to Display Blood Cultures: No Data to Display Toxicology Panel: No Data to Display Anesthesia Assessment and Plan Anesthesia History Personal History: No History of Anesthesia Complications Family History: No Family History of Anesthesia Complications Exercise Tolerance Exercise Tolerance: Metabolic Equivalents>4 Pertinent Negatives Pertinent Negatives: No Symptoms of GERD, No Major Cardiovascular Symptoms or Complaints, No Major Pulmonary Symptoms or Complaints and No History of CVA/TIA Cardiac & Pulmonary Exam Cardiac Exam: Normal S1/S2 Heart Sounds Pulmonary Exam: Clear Bilateral Breath Sounds Implantable Cardiac Device Does patient have a Pacemaker or an ICD?: No Airway Exam Known Difficult Airway: No Mallampati Class: 2 Mouth Opening: Normal (> 3cm) Thyromental Distance: Greater than 3 cm Neck Range of Motion: Full ROM Neck Circumference: Thick Teeth Condition: Normal Dentition Airway Comments: Reports some snoring ASA Classification ASA Score: ASA 2 Emergency Case?: No NPO Status NPO Status: NPO Clears >2 hours, Solids >8 hours Anesthesia Plan Resuscitation Status: Full Code Anesthesia Technique: General Anesthesia Airway Planned: LMA Monitors Used: Standard Monitors
--- NOTE | 2024-03-18 09:11 | W.PREOPHP ---
Assessment and Plan Assessment and plan (1) Complex tear of medial meniscus of right knee: Status: Acute (2) Tear of lateral meniscus of right knee: Status: Acute Assessment and plan: Marin is a 48-year-old male who has persistent right knee pain with MRI confirmed medial and lateral meniscal tears. He has failed other nonoperative options and is here today for arthroscopic intervention. I reviewed the risk of the procedure to include bleeding, infection, pain, stiffness, worsening arthritis, blood clot. Despite these risk, he elects to proceed History of Present Illness History of Present Illness Chief Complaint: Right Knee Pain Narrative: Marin is an active 48 year old male who has had persistent right knee pain. MRI was performed and confirmed medial and lateral meniscus tears. He has failed other onoperative options and is here today for arthroscopic intervention. No acute changes. No chest pain or shortness of breath. Review of Systems All systems reviewed & are unremarkable except as noted in HPI and below PFSH All Active Problems Tear of lateral meniscus of right knee (Acute) Complex tear of medial meniscus of right knee (Acute) Chondrocalcinosis (Acute) Internal derangement of right knee (Acute) Degenerative joint disease of right hip (Chronic) Prediabetes (Acute) Chronic GERD (Acute) Dysphagia (Acute) Medical History Depression Restless leg Cyst of lateral meniscus of left knee Headache Back pain Episodic mood disorder Dysphasia GERD (gastroesophageal reflux disease) Fatigue Candidal skin infection Decreased libido Low serum testosterone level Surgical History History of colonoscopy (~06/2023) Social History Smoking/Tobacco Use Status: Never Smoking risk assessment performed?: Yes Alcohol Intake: current Alcohol Intake frequency: a few times a month Alcohol type: beer and hard liquor Drug use: Daily Substance use type: marijuana Details: gummies for sleep Housing: house Current gender identity: male Do you feel safe at home: Yes Do you feel safe in your relationship?: Yes Meds Allergies and Home Medications Allergies Allergy/AdvReac Type Severity Reaction Status Date / Time shellfish derived Allergy Intermediate Swelling/Ed Verified 03/18/24 08:22 laya penicillin V Allergy Unknown Skin Rash Verified 03/18/24 08:22 Home Medications ?Medication ?Instructions ?Recorded ?Confirmed ?Type escitalopram oxalate 10 mg tablet 20 mg PO DAILY 05/17/23 03/18/24 History (Lexapro) lamotrigine 25 mg tablet (Lamictal) 25 mg PO DAILY 06/14/23 03/18/24 History omeprazole 20 mg capsule,delayed 20 mg PO DAILY PRN 06/14/23 03/18/24 History release meloxicam 15 mg tablet 15 mg PO DAILY #30 tabs 09/13/23 03/18/24 Rx acetaminophen 500 mg tablet 500 mg PO Q6H PRN pain #60 tabs 03/18/24 Rx hydrocodone 5 mg-acetaminophen 325 1 tab PO Q6H PRN severe pain #6 03/18/24 Rx mg tablet tabs Exam Const General: cooperative Nutritional Appearance: average body habitus Orientation: alert, awake and oriented x3 Resp Effort & Inspection: normal respiratory effort Auscultation: clear to auscultation bilaterally Cardio Rate: regular rate Rhythm: regular rhythm Results Last Vital Signs Temp 36.3 C L 03/18/24 09:00 Pulse 60 03/18/24 09:00 Resp 16 03/18/24 09:00 BP 134/82 03/18/24 09:00 Pulse Ox 97 03/18/24 09:00
--- NOTE | 2024-03-18 10:03 | W.PM.DSUDISC ---
Date of service: 03/18/24 Time of Service: 10:06 Discharge Plan Disposition Patient Disposition: Home Condition: Good Discharge Details Reason For Visit: Right knee medial meniscus tear Attending Provider: John Vincent Primary Care Provider: Yuli Jules Home Meds and New Rx's Prescriptions: New hydrocodone-acetaminophen 5-325 mg tablet 1 tab PO Q6H PRN (Reason: severe pain) Qty: 6 0RF Rx Instructions: Take one tablet up to every 6 hours as needed for severe postoperative pain acetaminophen 500 mg tablet 500 mg PO Q6H PRN (Reason: pain) Qty: 60 2RF Continued lamotrigine [Lamictal] 25 mg tablet 25 mg PO DAILY escitalopram oxalate [Lexapro] 10 mg tablet 20 mg PO DAILY omeprazole 20 mg capsule,delayed release(DR/EC) 20 mg PO DAILY PRN Patient Comments: Take 1 capsule by mouth once a day meloxicam 15 mg tablet 15 mg PO DAILY Qty: 30 0RF Rx Instructions: with food. do not take with other NSAIDS Discharge Instructions Stand Alone Forms: [facility] Knee Arthroscopy Equipment/Supplies: Partial Weight Bearing Crutches Activity:: Elevate Remove Dressings/Wound Care:: 48 hours Shower/Bathe:: 48 hours Diet:: As Tolerated Discharge Orders Discharge Orders: Discharge Order (Routine); Ordered 03/18/24 Ordered By: Oneyda Johnson
[2024-03-18] MEDS: ceFAZolin 3,000 MG in Normal Saline 100 ML 200 MG IV (10:11)
[2024-03-18] MEDS: TRANEXAMIC ACID/SOD. CHL. 1,000 MG/100 ML BAG 600 MG IVPB (10:20)
[2024-03-18] MEDS: EPINEPHrine 10 MG/10 ML ML (10:28)
[2024-03-18] MEDS: Bupivacaine 0.5% Pres-Free 30 ML VIAL (10:33)
--- NOTE | 2024-03-18 11:12 | ROE_ITS ---
Date of service: 03/18/24 Time of Service: 10:10 Operative Note Operative Note DATE OF PROCEDURE: 03/18/24 PRE-OP DIAGNOSIS: Right knee medial and lateral meniscal tears POST-OP DIAGNOSIS: same (Medial and lateral chondromalacia) PROCEDURE: Arthroscopic partial medial and lateral meniscectomies?right knee Lateral chondroplasty - right knee SURGEON: John Vincent ANESTHESIA TYPE: General LMA/ETT Refer to Anesthesia Record ESTIMATED BLOOD LOSS: 5 PATHOLOGY: none sent COMPLICATIONS: None Patient was transported to: PACU Patient's condition: stable Indications: I have seen Marin in clinic for symptoms of a meniscus tear. This was confirmed based on MRI and exam findings. Nonoperative measures were exhausted but disability and pain persisted. I discussed knee arthroscopy with meniscal intervention with the patient. I reviewed the risks of the procedure to include, but not limited to, bleeding, infection, pain, stiffness, damage to n erves or vessels, recurrence, blood clot. Despite these risks, the patient elected to proceed. Findings: A diagnostic arthroscopy was performed with the following findings: Suprapatellar Pouch: Mild inflammatory changes, No loose bodies Medial Compartment: Complex medial meniscal tear with a primary radial component as well as horizontal extension, Intact meniscal root, grade III chondromalacia of the femur, almost entire weightbearing portion, and focally within the central portion of the tibia, No loose bodies Notch: ACL and PCL were intact Lateral Compartment: Calcification seen within the meniscus with a complex tear at the posterior horn, Intact meniscal root, grade II/III chondromalacia mostly of the tibia and the posterior lateral corner, No loose bodies Patellofemoral Compartment: Grade II/III chondromalacia, No apparent patellar maltracking Procedure Description: Marin was greeted in the preoperative holding area where the correct side was identified and marked. The consent was reviewed with the patient and signed. The history and physical was updated. All questions were answered. He was taken back to the operating room. The patient was placed into the supine position on the operating room table. All bony prominences were well padded. Prophylactic antibiotics in the form of Cefazolin were administered. The right leg was then prepped with Chloraprep and draped in a standard fashion with stockinette and extremity drape. A timeout to confirm correct identity, side and site, procedure, allergies, anesthesia, and medical concerns was performed. The leg was placed into a pneumatic leg bucio, [id number]. A standard lateral portal was made at the lateral border of the patella tendon in line with the inferior pole of the patella, soft spot. The skin and deep tissue was incised sharply and the blunt trochar was inserted atraumatically. A diagnostic arthroscopy was performed and the findings are listed above. The suprapatellar pouch had mild inflammatory changes. The patellofemoral articulation showed moderate chondral changes both of the patella and the trochlea but with good tracking. The lateral gutter had no loose bodies and the medial gutter had no loose bodies. The knee was brought into some valgus stress in extension to open the medial compartment. A medial portal was made, localized by a spinal needle. The portal was created with an #11 blade through skin and capsule under direct visualization avoiding any meniscal injury. A probe was then inserted into the medial compartment. The medial compartment was fully inspected. The chondral surface of the tibia showed grade III chondromalacia with fissuring and the surface of the femur showed grade III chondromalacia. The medial meniscus had a complex tear at the level of the posterior horn with a primary radial component and horizontal extension medially. There are some fraying of the right meniscus and degenerative appearance. After evaluation, the meniscus was debrided down to a stable base using a series of biters and arthroscopic neil. It was probed afterwards to confirm that the tear had been removed and the meniscus was stable. No chondroplasty was performed given that there is no loose flaps. The notch was then inspected which showed an intact ACL and an intact PCL. The leg was then brought into a figure of 4 position. The lateral compartment was fully inspected with the arthroscope and a probe. The chondral surface of the lateral femur showed grade I chondromalacia. The chondral surface of the lateral tibia showed a focal area of grade III chondromalacia at the posterior lateral aspect of the tibial plateau. The lateral meniscus had crystal de posits. After evaluation, the meniscus was debrided down to a stable base using a series of biters and arthroscopic neil. It was probed afterwards to confirm that the tear had been removed and the meniscus was stable. Cartilage surfaces were debrided of any flaps, leaving any intact fibers. The arthroscope was brought back into the suprapatellar pouch and the leg was in full extension. The knee was thoroughly irrigated with the arthroscopic fluid on high flow and pressure. Inflow was stopped and excess fluid was removed. The wounds were closed with 4-0 Nylon. They were dressed with Xeroform, 4x4 gauze, ABD pad, Kerlix and an CANDY wrap. A cryo-cuff was applied. The patient tolerated the procedure well and was returned to the Same Day Surgery area in a stable condition suffering no known complication.
[2024-03-18] MEDS: HYDROcodone 5/Acetaminophen 325 TAB PO (12:37)
--- NOTE | 2024-03-18 12:40 | W.ANESPOSTOP ---
Postoperative Evaluation Date, Time and Location Date Performed: 03/18/24 Time Performed: 12:41 Patient Location: Day Surgery Unit Vital Signs Most Recent Imported Vital Signs: Most Recent Vital Signs Temp Pulse Resp BP Pulse Ox 36.5 C 50 L 12 140/87 99 03/18/24 12:05 03/18/24 12:11 03/18/24 12:11 03/18/24 12:11 03/18/24 12:11 Pain Score Most Recent Pain Score: Most Recent Pain Score Pain Level 4 03/18/24 12:05 Assessment Mental Status: Awake (Alert & Oriented to Patient Baseline) Airway and Respiratory Function: Patent airway with normal (patient baseline) respiratory exam Cardiovascular Function: Hemodynamically Stable Hydration Status: Adequately Hydrated Nausea & Vomiting: No Nausea or Vomiting Pain: Pain is tolerable per patient Peripheral Nerve Block: Patient did not receive a nerve block Teaching Patient Teaching: Discussed Safe Use of Pain Medication Given Recent Anesthesia
== END 2024-03-18 13:31 | disposition home or self-care (01) ==
PROVIDERS: PCP Nurse Practitioner Family; Visit Provider Student in an Organized Health Care Education/Training Program
PROC: (CPT 29870; principal; 2024-03-18 11:00)
DX: M23.231 Derangement of other medial meniscus due to old tear or injury, right knee (principal); M23.261 Derangement of other lateral meniscus due to old tear or injury, right knee; M11.261 Other chondrocalcinosis, right knee; M94.261 Chondromalacia, right knee
CPT/HCPCS: 29880; J0665; J0690; J1100; J2001; J2250; J2405; J2704

== ENCOUNTER 2025-01-15 09:52 | Outpatient (CLI) | payer BC, SELFPAY ==
[2025-01-15] MEDS: Gadoterate meglumine 20 ML SYRINGE IVP (13:05)
[2025-01-15] MEDS: Normal Saline Flush 10 ML SYR IVP (13:06)
--- NOTE | 2025-01-15 13:30 | DI.MRI_ITS ---
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 Both noninfused and contrast infused sequences were performed. IV Contrast injected was cc Dotarem. COMPARISON: No exams were available for comparison FINDINGS: CEREBRAL PARENCHYMA: No evidence of intracranial hemorrhage, mass effect nor shift of midline structure. No extraaxial fluid collections. Ventricles are not enlarged nor shifted. There is no significant focal signal abnormality in the cerebellar hemispheres nor within the camilo, midbrain, and thalami. There is no abnormal signal abnormality in the periventricular white matter. DWI: No areas of restricted diffusion to suggest acute ischemic event. SWI: No microhemorrhages evident. There are no ring enhancing lesions in the brain. There is no abnormal meningeal enhancement. PITUITARY GLAND: No mass nor parasellar abnormality. No obvious abnormality in the cavernous sinuses. FLOW VOIDS: The expected flow void are noted. No evidence of obvious aneurysm nor obvious vascular malformation. PARANASAL SINUSES: Some mucosal thickening noted in both maxillary sinuses. Tiny amount of fluid noted in left maxillary sinus. Other paranasal sinuses are clear as are the mastoid air cells. ORBITS: No obvious abnormal findings. IMPRESSION: 1. No significant intracranial findings on this MRI scan of the brain. 2. No abnormal enhancing intracranial findings. There are no ring enhancing lesions in the brain and there is no abnormal meningeal enhancement. 3. There is some mucosal thickening in both maxillary sinuses evident. DATA REPOSITORY:
--- NOTE | 2025-01-15 13:45 | DI.MRI_ITS ---
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 The supraclinoid aspects of both internal carotid arteries are patent. Both A1 segments are patent as are the anterior cerebral arteries. There is no evidence of aneurysm at the level the anterior communicating artery. Both middle cerebral arteries are patent without significant stenosis nor occlusion nor obvious aneurysms. Flow signal is seen at out to the sylvian fissure branches. POSTERIOR CIRCULATION: At the skull base the basilar artery is formed by both vertebral arteries, left vertebral artery being dominant. Basilar artery ascends without significant stenosis. Distally it gives off superior cerebellar arteries. Above this level it terminates as patent bilateral posterior cerebral arteries. No obvious stenosis in the posterior cerebral arteries. There is no aneurysm at the tip of the basilar artery nor elsewhere in the [id number]. No evidence of obvious vascular malformation. IMPRESSION: 1. Patent intracranial arteries. No obvious significant stenosis and no aneurysms evident. 2. No evidence of obvious vascular malformation. DATA REPOSITORY:
== END 2025-01-15 10:12 ==
PROVIDERS: PCP Nurse Practitioner Family; Visit Provider Student in an Organized Health Care Education/Training Program
DX: H05.823 Myopathy of extraocular muscles, bilateral (principal)
CPT/HCPCS: 70544; 70553

== ENCOUNTER 2025-01-21 19:16 | Outpatient (REF) | payer BC, SELFPAY ==
[2025-01-21 16:33] LABS: Anion Gap 8.5 mmol/L (3-11); BUN 17 mg/dL (7-18); CO2 27.5 mmol/L (21.0-32.0); Calcium 9.3 mg/dL (8.5-10.1); Chloride 105 mmol/L (98-107); Estimated GFR 106.01 (mL/min/1.73m2); Glucose 114 mg/dL (74-106); Potassium 4.2 mmol/L (3.5-5.1); Sodium 141 mmol/L (136-145)
== END 2025-01-21 19:17 | disposition home or self-care (01) ==
LOC: NCHCN 19:16
PROVIDERS: PCP Nurse Practitioner Family; Visit Provider Student in an Organized Health Care Education/Training Program
DX: Z00.00 Encounter for general adult medical examination without abnormal findings (principal)
CPT/HCPCS: 80048